=== PATIENT | male | born 1995 | race Two or more races ===

== ENCOUNTER 2024-03-18 06:44 | Inpatient (IN) | payer BC, OTHER ==
[~2024-03-18] VITALS: Ht 185.4 cm; Wt 72.6 kg
--- NOTE | 2024-03-18 06:56 | ED.PDOC ---
GI ASSESSMENT HPI Comments a 28 YEAR OLD MALE PRESENTS TO THE ED WITH CHIEF COMPLAINT OF ABDOMINAL PAIN. PATIENT REPORTS THAT HE HAS BEEN EXPERIENCING RLQ ABDOMINAL PAIN THAT RADIATES TO HIS RIGHT FLANK SINCE 3 DAYS AGO WITH ASSOCIATED NAUSEA, VOMITING, AND DYSURIA SINCE EARLIER THIS MORNING. PATIENT RELAYS THAT HE HAS NOT TAKEN ANY PAIN MEDICATION AT THIS TIME. WALKING AND MOVEMENT INCREASES RIGHT LOWER ABD PAIN. PATIENT DENIES ANY DIARRHEA, FEVER, CHILLS, HEMATURIA, OR HEMATEMESIS. Time Seen by MD: 06:52 Reviewed Notes: Nurses Notes, Medications, Allergies Allergies: Coded Allergies: NO KNOWN ALLERGIES (Unverified , 03/18/24) Information Source: Patient Mode of Arrival: Ambulatory Timing: Hours Duration: Since onset Prehospital treatment: None Quality: Sharp Vomitus: Watery Stool: Normal Severity: Moderate Recent: None Recent Hx of: None Pain Location: RLQ Modifying Factors: Nothing Associated sign and symptoms: Nausea, Vomiting, Abdominal Pain Past Medical History PAST MEDICAL HISTORY: Denies Surgical History: Denies all surgeries Family History Family History: Reviewed,noncontributory to illness Social History Smoker: Non-Smoker Alcohol: Denies ETOH Use Drugs: Denies Drug Use Lives In: Home Constitutional: denies: chills, diaphoresis, fatigue, fever, malaise, sweats, weakness, others EENTM: denies: blurred vision, double vision, ear bleeding, ear discharge, ear drainage, ear pain, ear ringing, eye pain, eye redness, hearing loss, mouth pain, mouth swelling, nasal discharge, nose bleeding, nose congestion, nose pain, photophobia, tearing, throat pain, throat swelling, voice changes, others Respiratory: denies: cough, hemoptysis, orthopnea, SOB at rest, shortness of breath, SOB with excertion, stridor, wheezing, others Cardiovascular: denies: chest pain, dizzy spells, diaphoresis, Dyspnea on exertion, edema, irregular heart beat, left arm pain, lightheadedness, palpitations, PND, syncope, others Gastrointestinal: reports: abdominal pain, nausea, vomiting; denies: abdomen distended, blood streaked bowels, constipated, diarrhea, dysphagia, difficulty swallowing, hematemesis, melena, poor appetite, poor fluid intake, rectal bleeding, rectal pain, others Genitourinary: reports: dysuria; denies: burning, flank pain, frequency, hematuria, incontinence, penile discharge, penile sore, pain, testicle pain, testicle swelling, urgency, others Neurological: denies: dizziness, fainting, headache, left sided numbness, left sided weakness, numbness, paresthesia, pre-existing deficit, right sided numbness, right sided weakness, seizure, speech problems, tingling, tremors, weakness, others Musculoskeletal: denies: back pain, gout, joint pain, joint swelling, muscle pain, muscle stiffness, neck pain, others Integumetry: denies: bruises, change in color, change in hair/nails, dryness, laceration, lesions, lumps, rash, wounds, others Allergic/Immunocompromised: denies: Difficulty Healing, Frequent Infections, Hives, Itching, others Hematologic/Lymphatic: denies: anemia, blood clots, easy bleeding, easy bruising, swollen glands, others Endocrine: denies: excessive hunger, excessive sweating, excessive thirst, excessive urination, flushing, intolerance to cold, intolerance to heat, unexplained weight gain, unexplained weight loss, others Psychiatric: denies: anxiety, bipolar disorder, depression, hopeless, panic disorder, schizophrenia, sleepless, suicidal, others All Other Systems: Reviewed and Negative Physical Exam General Appearance: Mild Distress, Normal HEENT: Normal ENT Inspection, PERRL/EOMI Neck: Full Range of Motion, Non-Tender, Normal, Normal Inspection Respiratory: Chest Non-Tender, Lungs Clear, No Accessory Muscle Use, No Respiratory Distress, Normal Breath Sounds Cardiovascular: No Edema, No JVD, No Murmur, No Gallop, Normal Peripheral Pulses, Regular Rate/Rhythm Breast Exam: Deferred Gastrointestinal: Guarding, No Organomegaly, No Pulsatile Mass, Normal Bowel Sounds, Soft, Tenderness (WITH GUARDING AND REBOUND TENDERNESS ON RIGHT LOWER ABD, APPENTITIS. ) Genitalia: Deferred Pelvic: Deferred Rectal: Deferred Extremities: No calf tenderness, Normal capillary refill, Normal inspection, Normal range of motion, Non-tender, No pedal edema Musculoskeletal : Apperance: Normal Neurologic: Alert, site reliability engineer II-XII nml as Tested, No Motor Deficits, Normal Affect, Normal Mood, No Sensory Deficits Cerebellar Function: Normal Reflexes: Normal Skin: Dry, Normal Color, Warm Peripheral Pulses: 2+ carotid (R), 2+ carotid (L) Lymphatic: No Adenopathy Was a procedure done? Was a procedure done?: No GI differential Dx Differential Diagnosis: Appendicitis, Gastritis/PUD, Gastroenteritis, UTI, Urolithiasis X-Ray, Labs, Meds, VS Vital Signs Date Time Temp Pulse Resp B/P (MAP) Pulse Ox O2 Delivery O2 Flow Rate FiO2 03/18/24 10:05 54 18 127/73 03/18/24 09:15 60 16 132/89 (103) 99 03/18/24 09:14 60 16 132/89 03/18/24 08:14 76 20 145/73 03/18/24 08:13 76 20 145/73 (97) 98 03/18/24 07:10 100 20 Room Air* 0 21 03/18/24 07:10 98.9 100 20 142/89 (106) 100 98.9 03/18/24 06:45 98.2 84 20 140/98 (112) 99 Lab Test 03/18/24 07:45 03/18/24 07:40 Range/Units Urine Color Light-yellow Yellow Urine Clarity Clear Clear Urine pH 8.0 5.0-9.0 Urine Specific [place] 1.015 1.001-1.035 Urine Protein Negative Negative Urine Ketones Negative Negative Urine Blood Negative Negative /uL Urine Nitrite Negative Negative Urine Bilirubin Negative Negative Urine Urobilinogen Normal Negative mg/dL Urine Leukocyte Esterase Negative Negative /uL Urine RBC 1 0 - 3 /hpf Urine WBC <1 0 - 3 /hpf Urine Squamous Epithelial Cells None seen <5 /hpf Urine Bacteria None seen None Seen /hpf Urine Glucose Normal Normal mg/dL White Blood Count 8.2 4.4-10.8 10^3/uL Red Blood Count 5.05 4.5-5.90 10^6/uL Hemoglobin 16.9 13.5-17.5 g/dL Hematocrit 46.9 41.0-53.0 % Mean Corpuscular Volume 93.0 80.0-100.0 fL Mean Corpuscular Hemoglobin 33.6 H 28.0-32.0 pg Mean Corpuscular Hemoglobin Concent 36.1 H 32.0-36.0 g/dL Red Cell Distribution Width 12.4 11.8-14.3 % Platelet Count 256 140-450 10^3/uL Mean Platelet Volume 8.0 6.9-10.8 fL Neutrophils (%) (Auto) 81.3 H 37.0-80.0 % Lymphocytes (%) (Auto) 13.7 10.0-50.0 % Monocytes (%) (Auto) 3.1 0.0-12.0 % Eosinophils (%) (Auto) 1.5 0.0-7.0 % Basophils (%) (Auto) 0.4 0.0-2.0 % Neutrophils # (Auto) 6.7 1.6-8.6 10 ^3/uL Lymphocytes # (Auto) 1.1 0.4-5.4 10 ^3/uL Monocytes # (Auto) 0.3 0-1.3 10 ^3/uL Eosinophils # (Auto) 0.1 0-0.8 10 ^3/uL Basophils # (Auto) 0 0-0.2 10 ^3/uL Nucleated Red Blood Cells 0.1 % Sodium Level 141 136-145 mmol/L Potassium Level 3.8 3.5-5.1 mmol/L Chloride Level 104 98-107 mmol/L Carbon Dioxide Level 28 20-31 mmol/L Anion Gap 9 5-15 Blood Urea Nitrogen 12 9-23 mg/dL Creatinine 0.99 0.700-1.30 mg/dL Glomerular Filtration Rate Calc 105 >90 mL/min BUN/Creatinine Ratio 12.1 10.0-20.0 Serum Glucose 117 H 74-106 mg/dL Calcium Level 10.2 8.7-10.4 mg/dL C-Reactive Protein High Sensitivity 0.18 <1.0 mg/dL Current Medications Medications (Trade) Dose Ordered Sig/Sveta Route Start Time Stop Time Status Last Admin Sodium Chloride 1,000 ml @ 1,000 mls/hr Q1H ONCE IV 03/18/24 07:00 03/18/24 07:59 DC 03/18/24 07:12 Ondansetron HCl (Zofran) 4 mg ONCE ONCE IV 03/18/24 07:00 03/18/24 07:01 DC 03/18/24 07:12 Ketorolac Tromethamine (Toradol Injection) 30 mg ONCE ONCE IV 03/18/24 07:00 03/18/24 07:01 DC 03/18/24 07:11 Piperacillin Sod/ Tazobactam Sod 100 ml @ 100 mls/hr ONCE ONCE IV 03/18/24 08:00 03/18/24 08:59 DC 03/18/24 08:08 Meperidine HCl (Demerol Injection) 25 mg ONCE ONCE IV 03/18/24 08:15 03/18/24 08:16 DC 03/18/24 08:14 Sodium Chloride 1,000 ml @ 125 mls/hr Q8H ONCE IV 03/18/24 10:00 03/18/24 11:35 DC 03/18/24 09:55 Hydromorphone HCl (Dilaudid Injection) 0.5 mg ONCE ONCE IV 03/18/24 10:00 03/18/24 10:01 DC 03/18/24 10:05 CT ABD/PEL: FINDINGS: Lung bases: Lung bases are clear. Liver: Grossly unremarkable in its noncontrast enhanced appearance. No abnormal density or focal lesion identified. Biliary: No calcified gallstones or biliary ductal dilatation. Spleen: Unremarkable. Pancreas: Grossly unremarkable in its noncontrast enhanced appearance. Adrenal glands: Unremarkable. No mass. Kidneys: No hydronephrosis. No renal or ureteral calculi. Aorta/Vascular: No aneurysm or significant calcification. Retroperitoneum: No mass or lymphadenopathy. Bowel/mesentery: No small bowel obstruction. No free air or free fluid. Appendix is visualized and in diameter, at the upper limits of normal. No periappendiceal stranding or free fluid visualized. Moderate stool in the colon. Scattered colonic diverticula without adjacent inflammatory changes to suggest diverticulitis. Pelvic organs: Grossly unremarkable. Bladder: Unremarkable. No mass. Abdominal wall: No mass or hernia. Bones: No acute fracture or suspicious intraosseous lesion. IMPRESSION: 1. Appendix measures at the upper limits of normal in thickness with no periappendiceal stranding or free fluid identified. Early acute appendicitis can not be excluded in the appropriate clinical setting. Correlation with clinical findings is needed. 2. Moderate stool in the colon. 3. No hydronephrosis and no renal or ureteral calculi. X-Ray, Labs, Meds, VS Comment - The following tests were ordered, and results were reviewed by me: CT ABD/PEL, UA, CBC, BMP - Additional information was gathered from interviewing the following independent Historian: - I reviewed and agreed with the following test results read by other provider: CT ABD/PEL - I discussed treatments and results with medical personnel and . TREATMENT: TORADOL 30MG IV, ZOFRAN 4MG IV, MEPERIDINE 25MG IV, ZOSYN 3.375G IV, AND NORMAL SALINE IV. 0900: SPOKE WITH DR. JOLLEY REGARDING THE PATIENT CASE AND HE HAD ADVISED THE P ATIENT TO BE ADMITTED TO THE HOSPITAL AND HE WILL EVALUATE THE PATIENT LATER TODAY. DR JOLLEY ADVISED PATIENT TO HAVE A REPEAT CT ABD/PEL W/ IV CONTRAST TOMORROW MORNING. 1410: DR. JOLLEY EVALUATED THE PATIENT BEDSIDE AND ADVISED TO HAVE THE PATIENT ADMITTED TO THE HOSPITAL FOR OBSERVATION AND HAVE A REPEAT CT ABD/PEL PERFORMED WITH PO CONTRAST TOMORROW. Time of 1ST Reevaluation: 10:00 Reevaluation 1ST: Unchanged Time of 2ND Reevaluation: 11:00 Patient Education/Counseling: Diagnosis, Treatment Family Education/Counseling: Diagnosis, Treatment Departure 1 Departure Time of Disposition: 11:00 Impression: Primary Impression: Intractable abdominal pain Additional Impression: Acute appendicitis Qualified Codes: K35.80 - Unspecified acute appendicitis Disposition: ADMITTED INPATIENT Condition: Serious Critical Care Note Critical Care Time?: No Stability Stability form required: No Unstable for transfer: Requires medication, ED Physician Assesment, Possible rapid decline Heart Score Heart Score: Heart Score Response (Comments) Value History N/A 0 EKG N/A 0 Age N/A 0 Risk Factors N/A 0 Troponin N/A 0 Total 0 I personally scribed for BRIAN VILLARREAL ([email or web address]) on 03/18/24 at 06:56. Elect ronically submitted by Rafiq Stanley ([email or web address]). I personally scribed for BRIAN VILLARREAL ([email or web address]) on 03/18/24 at 07:12. Electron ically submitted by Rafiq Stanley ([email or web address]). I personally scribed for BRIAN VILLARREAL PA ([email or web address]) on 03/18/24 at 07:57. Electronically submitted by Rafiq Stanley ([email or web address]). I personally scribed for BRIAN VILLARREAL PA ([email or web address]) on 03/18/24 at 08:59. Electronically submitted by Rafiq Stanley ([email or web address]). I personally scribed for BRIAN VILLARREAL ([email or web address]) on 03/18/24 at 09:08. Electronically submitted by Rafiq Stanley ([email or web address]). I personally scribed for BRIAN VILLARREAL ([email or web address]) on 03/18/24 at 11:12. Electronically submitted by Rafiq Stanley ([email or web address]). I personally scribed for STEPHANIE BAIRD MD ([email or web address]) on 03/18/24 at 14:12. Electronically submitted by Rafiq Stanley ([email or web address]). BRIAN VILLARREAL Mar 18, 2024 06:56 STEPHANIE BAIRD MD Mar 18, 2024 14:12
[2024-03-18 07:10] VITALS: PULSE 100; RESP 20
[2024-03-18] MEDS: KETOROLAC TROMETH 30 MG/ML 1ML VIAL IV ONE (07:11)
[2024-03-18] MEDS: SODIUM CHLORIDE 0.9% 1,000 ML IV ONE ×2 (07:12→09:55)
[2024-03-18] MEDS: ONDANSETRON HCL 4 MG/2 ML VIAL IV ONE (07:12)
--- NOTE | 2024-03-18 07:51 | DVH ---
CLINICAL INFORMATION: 28 years old, Male; RIGHT LOWER ABD PAIN TO RIGHT LOWER BACK. TECHNIQUE: Axial CT images of the abdomen and pelvis were obtained without IV contrast. Coronal and sagittal reformatted images were obtained, reviewed, and stored. Evaluation of the parenchymal organs is limited without IV contrast. Evaluation of the bowel and mesentery is limited without oral contra st. All CT scans at this medical facility are performed using dose modulation techniques as appropria te to a performed exam including the following: Automated exposure control was utilized; adjustment o f the MA and/or KV according to patient size; and use of iterative reconstruction technique. CTDIvol = 6.71, 0.07, 0.07 mGy DLP = 317.16 mGy-cm COMPARISON: None FINDINGS: Lung bases: Lung bases are clear. Liver: Grossly unremarkable in its noncontrast enhanced appearance. No abnormal density or focal les ion identified. Biliary: No calcified gallstones or biliary ductal dilatation. Spleen: Unremarkable. Pancreas: Grossly unremarkable in its noncontrast enhanced appearance. Adrenal glands: Unremarkable. No mass. Kidneys: No hydronephrosis. No renal or ureteral calculi. Aorta/Vascular: No aneurysm or significant calcification. Retroperitoneum: No mass or lymphadenopathy. Bowel/mesentery: No small bowel obstruction. No free air or free fluid. Appendix is visualized and in diameter, at the upper limits of normal. No periappendiceal stranding or free fluid visualized. Mode rate stool in the colon. Scattered colonic diverticula without adjacent inflammatory changes to sugge st diverticulitis. Pelvic organs: Grossly unremarkable. Bladder: Unremarkable. No mass. Abdominal wall: No mass or hernia. Bones: No acute fracture or suspicious intraosseous lesion. IMPRESSION: 1. Appendix measures at the upper limits of normal in thickness with no periappendiceal stranding or free fluid identified. Early acute appendicitis can not be excluded in the appropriate clinical setti ng. Correlation with clinical findings is needed. 2. Moderate stool in the colon. 3. No hydronephrosis and no renal or ureteral calculi.
[2024-03-18 07:58] LABS: Urine Bacteria None Seen /hpf (None Seen)
[2024-03-18] MEDS ORDERED: MORPHINE SULFATE 4 MG/ML SYR/VIAL IV ONE (08:00)
[2024-03-18] MEDS: PIPERACILLIN-TAZOB 3.375GM 100 ML IV ONE (08:08)
[2024-03-18] MEDS: MEPERIDINE HCL (25 MG/ML) 1ML VIAL IV ONE (08:14)
[2024-03-18 08:34] LABS: Chloride 104 mmol/L (98-107); Potassium 3.8 mmol/L (3.5-5.1); Sodium 141 mmol/L (136-145)
[2024-03-18 08:35] LABS: Anion Gap 9 (5-15); Calcium 10.2 mg/dL (8.7-10.4); Carbon Dioxide 28 mmol/L (20-31)
[2024-03-18 08:35] LABS: Urine Blood Negative /uL (Negative); Urine Clarity Clear (Clear); Urine Color Light-Yellow (Yellow); Urine Protein, UAD Negative (Negative); Urine Specific Gravity 1.015 (1.001-1.035); Urine Squamous Epithelial Cell None Seen /hpf (<5); Urine Urobilinogen Normal (Negative); Urine WBC <1 /hpf (0 - 3)
[2024-03-18 08:39] LABS: Basophils # (auto) 0 10 ^3/uL (0-0.2); Basophils % (auto) 0.4 % (0.0-2.0); Eosinophils # (auto) 0.1 10 ^3/uL (0-0.8); Eosinophils % (auto) 1.5 % (0.0-7.0); Hematocrit 46.9 % (41.0-53.0); Hemoglobin 16.9 g/dL (13.5-17.5); Lymphocytes # (auto) 1.1 10 ^3/uL (0.4-5.4); Lymphocytes % (auto) 13.7 % (10.0-50.0); Mean Corpuscular Hemoglobin 33.6 pg (28.0-32.0); Mean Corpuscular Hgb Conc. 36.1 g/dL (32.0-36.0); Monocytes # (auto) 0.3 10 ^3/uL (0-1.3); Monocytes % (auto) 3.1 % (0.0-12.0); Neutrophils # (auto) 6.7 10 ^3/uL (1.6-8.6); Neutrophils % (auto) 81.3 % (37.0-80.0); Nucleated Red Blood Cells % 0.1 %; Platelet Count (auto) 256 10^3/uL (140-450); Red Blood Cells 5.05 10^6/uL (4.5-5.90); Red Cell Distribution Width 12.4 % (11.8-14.3); White Blood Cell 8.2 10^3/uL (4.4-10.8)
[2024-03-18 08:40] LABS: BUN/Creatinine Ratio 12.1 (10.0-20.0); Blood Urea Nitrogen 12 mg/dL (9-23)
[2024-03-18 08:41] LABS: Glucose 117 mg/dL (74-106)
[2024-03-18 09:02] VITALS: BP 122/71; PULSE 50; RESP 16; TEMP 97.5; O2SAT 99
[2024-03-18] MEDS: HYDROmorphone HCL 2 MG/ML VL/or syr IV ONE ×2 (10:05→14:23)
[2024-03-18] MEDS ORDERED: VANCOMYCIN PER PHARMACY 0 MG IV SCH (11:30)
[2024-03-18] MEDS ORDERED: MORPHINE SULFATE INJ 2 MG/ml SYRG IV PRN (11:30)
--- NOTE | 2024-03-18 11:35 | DVHHP2 ---
History of Present Illness Reason for Visit: Nausea, vomiting, diarrhea, dysuria, and abdominal pain History of Present Illness Rene Huntley is a 28Y M with no past medical history who reports to the ED today for nausea, vomiting, diarrhea, dysuria, and abdominal pain x3 days. Patient reports that it started during the new year's and he has been vomiting clear and food contents. Patient reports that he does not drink or smoke cigarettes but he does use marijuana occasionally. Patient also states that he does not use any medications. Patient denies fevers, chills, chest pain, shortness of breath, lightheadedness, and dizziness. Past Surgical History: None Family History: Other (Dad - diverticulosis) Smoke: No ALCOHOL: none Drugs: Marijuana Lives: with Family Domestic Violence: Neg Review of Systems Constitutional: No: Fever, Chills, Sweats, Weakness, Malaise, Other Eyes: No: Pain, Vision change, Conjunctivae inflammation, Eyelid inflammation, Other, Redness ENT: No: Ear pain, Ear discharge, Nose pain, Nose discharge, Nose congestion, Mouth pain, Mouth swelling, Throat pain, Throat swelling, Other Respiratory: No: Cough, Dry, Shortness of breath, SOB with excertion, Wheezing, Hemoptysis, Pleuritic Pain, Sputum, Wheezing, Other Cardiovascular: No: Chest Pain, Palpitations, Orthopnea, Paroxysmal Noc. Dysp ten, Edema, Lt Headedness, Other Gastrointestinal: Nausea, Vomiting, Abdominal Pain, Diarrhea; No: Constipation, Melena, Hematochezia, Other Genitourinary: Dysuria; No Frequency, No Incontinence, No Hematuria, No Retention, No Other Musculoskeletal: No: other, neck pain, shoulder pain, arm pain, back pain, hand pain, leg pain, foot pain Skin: No: Rash, Lesions, Jaundice, Bruising, Other Neurological: No: Weakness, Numbness, Incoordination, Change in speech, Confu randy, Seizures, Other Allergies: Coded Allergies: NO KNOWN ALLERGIES (Unverified , 03/18/24) Exam Vital Signs Vital Signs Date Time Temp Pulse Resp B/P (MAP) Pulse Ox O2 Delivery O2 Flow Rate FiO2 03/18/24 10:05 54 18 127/73 03/18/24 09:15 99 03/18/24 07:10 Room Air* 0 21 03/18/24 07:10 98.9 98.9 General Appearance: Alert, Oriented X3, Cooperative, moderate distress HEENT: Atraumatic, PERRLA, EOMI, Mucous membr. moist/pink Respiratory: Clear to auscultation, Normal air movement Cardiovascular: Regular rate, Normal S1, Normal S2, No murmurs Abdominal: No hepatospenomegaly, No masses, Other (positive obturator sign) Extremities: No clubbing, No cyanosis, No edema, Normal pulses, No tenderness/swelling Skin: No rashes, No breakdown, No significant lesion Neuro: Normal gait, Normal speech, Strength at 5/5 X4 ext, Normal tone, Sensation intact Psych/Mental Status: Mental status NL, Mood NL Labs/Xrays Labs Test 03/18/24 07:45 03/18/24 07:40 Range/Units Urine Color Light-yellow Yellow Urine Clarity Clear Clear Urine pH 8.0 5.0-9.0 Urine Specific [place] 1.015 1.001-1.035 Urine Protein Negative Negative Urine Ketones Negative Negative Urine Blood Negative Negative /uL Urine Nitrite Negative Negative Urine Bilirubin Negative Negative Urine Urobilinogen Normal Negative mg/dL Urine Leukocyte Esterase Negative Negative /uL Urine RBC 1 0 - 3 /hpf Urine WBC <1 0 - 3 /hpf Urine Squamous Epithelial Cells None seen <5 /hpf Urine Bacteria None seen None Seen /hpf Urine Glucose Normal Normal mg/dL White Blood Count 8.2 4.4-10.8 10^3/uL Red Blood Count 5.05 4.5-5.90 10^6/uL Hemoglobin 16.9 13.5-17.5 g/dL Hematocrit 46.9 41.0-53.0 % Mean Corpuscular Volume 93.0 80.0-100.0 fL Mean Corpuscular Hemoglobin 33.6 H 28.0-32.0 pg Mean Corpuscular Hemoglobin Concent 36.1 H 32.0-36.0 g/dL Red Cell Distribution Width 12.4 11.8-14.3 % Platelet Count 256 140-450 10^3/uL Mean Platelet Volume 8.0 6.9-10.8 fL Neutrophils (%) (Auto) 81.3 H 37.0-80.0 % Lymphocytes (%) (Auto) 13.7 10.0-50.0 % Monocytes (%) (Auto) 3.1 0.0-12.0 % Eosinophils (%) (Auto) 1.5 0.0-7.0 % Basophils (%) (Auto) 0.4 0.0-2.0 % Neutrophils # (Auto) 6.7 1.6-8.6 10 ^3/uL Lymphocytes # (Auto) 1.1 0.4-5.4 10 ^3/uL Monocytes # (Auto) 0.3 0-1.3 10 ^3/uL Eosinophils # (Auto) 0.1 0-0.8 10 ^3/uL Basophils # (Auto) 0 0-0.2 10 ^3/uL Nucleated Red Blood Cells 0.1 % Sodium Level 141 136-145 mmol/L Potassium Level 3.8 3.5-5.1 mmol/L Chloride Level 104 98-107 mmol/L Carbon Dioxide Level 28 20-31 mmol/L Anion Gap 9 5-15 Blood Urea Nitrogen 12 9-23 mg/dL Creatinine 0.99 0.700-1.30 mg/dL Glomerular Filtration Rate Calc 105 >90 mL/min BUN/Creatinine Ratio 12.1 10.0-20.0 Serum Glucose 117 H 74-106 mg/dL Calcium Level 10.2 8.7-10.4 mg/dL CLINICAL INFORMATION: 28 years old, Male; RIGHT LOWER ABD PAIN TO RIGHT LOWER BACK. COMPARISON: None FINDINGS: Lung bases: Lung bases are clear. Liver: Grossly unremarkable in its noncontrast enhanced appearance. No abnormal density or focal lesion identified. Biliary: No calcified gallstones or biliary ductal dilatation. Spleen: Unremarkable. Pancreas: Grossly unremarkable in its noncontrast enhanced appearance. Adrenal glands: Unremarkable. No mass. Kidneys: No hydronephrosis. No renal or ureteral calculi. Aorta/Vascular: No aneurysm or significant calcification. Retroperitoneum: No mass or lymphadenopathy. Bowel/mesentery: No small bowel obstruction. No free air or free fluid. Appendix is visualized and in diameter, at the upper limits of normal. No periappendiceal stranding or free fluid visualized. Moderate stool in the colon. Scattered colonic diverticula without adjacent inflammatory changes to suggest diverticulitis. Pelvic organs: Grossly unremarkable. Bladder: Unremarkable. No mass. Abdominal wall: No mass or hernia. Bones: No acute fracture or suspicious intraosseous lesion. IMPRESSION: 1. Appendix measures at the upper limits of normal in thickness with no periappendiceal stranding or free fluid identified. Early acute appendicitis can not be excluded in the appropriate clinical setting. Correlation with clinical findings is needed. 2. Moderate stool in the colon. 3. No hydronephrosis and no renal or ureteral calculi. Assessment/Plan Assessment/Plan Assessment/Plan: Intractable abdominal pain possibly acute appendicitis ct a/p noted labs pain management antiemetics ua negative am labs IV antibiotics Ultrasound right lower quadrant General surgery consulted FEN/PPX IV fluids NPO DVT prophylaxis not indicated patient ambulating PUD prophylaxis not indicated no history of GERD or GI bleed Admit to med surg Patient states he doesn't take any home medications Discussed plan of care with patient and nurse Plan discussed with: Patient My Orders Orders - SARAHY BECKER Procedure Category Date Status Time C-Reactive Protein LAB 03/18/24 In Process 10:44 Right Lower Quad US 03/18/24 Logged 11:15 * Surgical Consult CONS 03/18/24 Transmitted Admit ADMIT 03/18/24 Transmitted 11:19 Allergies MAKI 03/18/24 In Process 11:19 Code Status CODE 03/18/24 Transmitted 11:19 0.9% Ns 1000 Ml PHA 03/18/24 Transmitted 11:30 Hydrocodone-Acet PHA 03/18/24 Transmitted 5/325mg Tab ([place] 11:30 Ondansetron Hcl PHA 03/18/24 Transmitted (Zofran) 11:30 Complete Blood Count LAB 03/19/24 Verified 04:00 Comprehensive LAB 03/19/24 Verified Metabolic Panel 04:00 Npo (Nothing By DIET 03/18/24 Transmitted Mouth) Diet Lunch Acetaminophen Tablet PHA 03/18/24 Transmitted (Tylenol Tablet) 11:30 Morphine Sulfate PHA 03/18/24 Transmitted Injection 11:30 Date of Service: Mar 18, 2024 Billing Provider: SARAHY BECKER Common Visit Codes: [id number] INP/OBS CARE (HIGH) SRAAHY BECKER Mar 18, 2024 11:35
--- NOTE | 2024-03-18 11:59 | DVH ---
INDICATION: r/o appendicitis Comparison: Same day CT abdomen pelvis TECHNIQUE: Graded compression technique along with Multiple real-time sonographic images were obtain ed for evaluation of the right lower quadrant. FINDINGS: The appendix was not visualized. No free fluid or lymph nodes are seen on this exam. IMPRESSION: 1.Nonvisualization of the appendix, thus cannot exclude appendicitis. HS:Y
[2024-03-18] MEDS: SODIUM CHLORIDE 0.9% 1,000 ML IV SCH (12:44)
[2024-03-18] MEDS: PIPERACILLIN-TAZOB 3.375GM 100 ML IV SCH (13:18)
--- NOTE | 2024-03-18 14:31 | DVHINCON2 ---
Date of service: Mar 18, 2024 Allergies: Coded Allergies: NO KNOWN ALLERGIES (Unverified , 03/18/24) Current Medications Current Medications Medications (Trade) Dose Ordered Sig/Sveta Route PRN Reason Start Time Stop Time Status Last Admin Sodium Chloride 1,000 ml @ 100 mls/hr Q10H IV 03/18/24 11:30 03/18/24 12:44 Acetaminophen/ Hydrocodone Bitart ([place] 5/325MG Tab) 1 tab Q4HP PRN PO MODERATE PAIN (4-6 PAIN SCALE) 03/18/24 11:30 Ondansetron HCl (Zofran) 4 mg Q4HP PRN IV NAUSEA / VOMITING 03/18/24 11:30 Acetaminophen (Tylenol Tablet) 650 mg Q6HP PRN PO PAIN SCALE 1-3 OR TEMP>100.4 03/18/24 11:30 Morphine Sulfate 2 mg Q4HPRN PRN IV SEVERE PAIN (7-10 PAIN SCALE) 03/18/24 11:30 03/18/24 12:52 DC Piperacillin Sod/ Tazobactam Sod 100 ml @ 25 mls/hr Q6HR IV 03/18/24 12:00 03/18/24 13:18 Vancomycin HCl 0 ml @ 0 mls/hr UD IV 03/18/24 11:30 03/18/24 11:52 DC Hydromorphone HCl (Dilaudid Injection) 0.5 mg QIDPRN PRN IV SEVERE PAIN (7-10 PAIN SCALE) 03/18/24 14:30 UNV Vital Signs Vital Signs Date Time Temp Pulse Resp B/P (MAP) Pulse Ox O2 Delivery O2 Flow Rate FiO2 03/18/24 12:57 97.8 58 18 136/79 (98) 99 97.8 03/18/24 12:55 Room Air 03/18/24 07:10 0 21 Labs/Diagnostic Data Labs Test 03/18/24 07:45 03/18/24 07:40 Range/Units Urine Color Light-yellow Yellow Urine Clarity Clear Clear Urine pH 8.0 5.0-9.0 Urine Specific [place] 1.015 1.001-1.035 Urine Protein Negative Negative Urine Ketones Negative Negative Urine Blood Negative Negative /uL Urine Nitrite Negative Negative Urine Bilirubin Negative Negative Urine Urobilinogen Normal Negative mg/dL Urine Leukocyte Esterase Negative Negative /uL Urine RBC 1 0 - 3 /hpf Urine WBC <1 0 - 3 /hpf Urine Squamous Epithelial Cells None seen <5 /hpf Urine Bacteria None seen None Seen /hpf Urine Glucose Normal Normal mg/dL White Blood Count 8.2 4.4-10.8 10^3/uL Red Blood Count 5.05 4.5-5.90 10^6/uL Hemoglobin 16.9 13.5-17.5 g/dL Hematocrit 46.9 41.0-53.0 % Mean Corpuscular Volume 93.0 80.0-100.0 fL Mean Corpuscular Hemoglobin 33.6 H 28.0-32.0 pg Mean Corpuscular Hemoglobin Concent 36.1 H 32.0-36.0 g/dL Red Cell Distribution Width 12.4 11.8-14.3 % Platelet Count 256 140-450 10^3/uL Mean Platelet Volume 8.0 6.9-10.8 fL Neutrophils (%) (Auto) 81.3 H 37.0-80.0 % Lymphocytes (%) (Auto) 13.7 10.0-50.0 % Monocytes (%) (Auto) 3.1 0.0-12.0 % Eosinophils (%) (Auto) 1.5 0.0-7.0 % Basophils (%) (Auto) 0.4 0.0-2.0 % Neutrophils # (Auto) 6.7 1.6-8.6 10 ^3/uL Lymphocytes # (Auto) 1.1 0.4-5.4 10 ^3/uL Monocytes # (Auto) 0.3 0-1.3 10 ^3/uL Eosinophils # (Auto) 0.1 0-0.8 10 ^3/uL Basophils # (Auto) 0 0-0.2 10 ^3/uL Nucleated Red Blood Cells 0.1 % Sodium Level 141 136-145 mmol/L Potassium Level 3.8 3.5-5.1 mmol/L Chloride Level 104 98-107 mmol/L Carbon Dioxide Level 28 20-31 mmol/L Anion Gap 9 5-15 Blood Urea Nitrogen 12 9-23 mg/dL Creatinine 0.99 0.700-1.30 mg/dL Glomerular Filtration Rate Calc 105 >90 mL/min BUN/Creatinine Ratio 12.1 10.0-20.0 Serum Glucose 117 H 74-106 mg/dL Calcium Level 10.2 8.7-10.4 mg/dL C-Reactive Protein High Sensitivity 0.18 <1.0 mg/dL Assessment 553603 R/O AC APPENDICITIS CLINICALLY TENDER RLQ CT SCAN NOT CONFIRMING CLOSE OBSERVATION CONSIDER EMERGENT SURGERY BASED ON ONGOING EVAL REPEAT CT ABD PELVIS WITH PO CONTRAST AM TO DETERMINE THE NEED FOR SURGERY Plan discussed with: Patient WILBERT JOLLEY MD Mar 18, 2024 14:31
[2024-03-18] MEDS: HYDROmorphone HCL 2 MG/ML VL/or syr IV PRN (14:42)
[2024-03-18 17:18] VITALS: BP 128/82; PULSE 54; RESP 17; TEMP 97.7; O2SAT 100
[2024-03-18] MEDS ORDERED: HYDROmorphone HCL 2 MG/ML VL/or syr IV ONE (18:00)
--- NOTE | 2024-03-18 18:04 | DVHINCON2 ---
DATE OF CONSULTATION: 03/18/2024 HISTORY OF PRESENT ILLNESS: This patient is 28 years old, coming in with right lower quadrant pain, started two or three days ago, got worse. He had nausea and vomiting as well and diarrhea. Did not have any restaurant food outside. No hematemesis, melena. No bleeding per rectum. PAST MEDICAL HISTORY: No diabetes, hypertension. PAST SURGICAL HISTORY: No significant surgical history. PHYSICAL EXAMINATION: VITAL SIGNS: Afebrile, stable signs. HEENT: With no evidence of pallor, cyanosis, or jaundice. NECK: Supple, nontender with no thyromegaly, lymphadenopathy. CHEST AND LUNGS: Clear. HEART: Within normal limits. ABDOMEN: Soft. He is minimally tender in the right lower abdomen with no significant rebound. EXTREMITIES: Unremarkable. NEUROLOGIC: Intact. CLINICAL IMPRESSION: Clinically, he does not appear to have acute appendicitis, but he does have significant right and left lower abdominal pain. CT scan is also not conclusive for appendicitis. PLAN: Will be to keep him under close observation, keep him n.p.o. and then determine the need for surgery based upon ongoing evaluation and possible repeat CT scan with p.o. contrast. MD PIERCE Walker/DOLLY TID: [id number] RECEIPT: [id number] cc: Ravi Lopes
[2024-03-18 18:59] VITALS: BP 122/81; PULSE 50; PULSE 63; RESP 16; RESP 18; TEMP 97.5; O2SAT 100; O2SAT 99
[2024-03-18 20:00] VITALS: PULSE 63; RESP 19; O2SAT 100
[2024-03-18 21:00] VITALS: BP 122/81; PULSE 53; RESP 19; TEMP 97.5; O2SAT 100
[2024-03-18] MEDS: ONDANSETRON HCL 4 MG/2 ML VIAL IV PRN (21:12)
[2024-03-19 01:00] VITALS: BP 105/63; PULSE 50; RESP 18; TEMP 97.4; O2SAT 100
[2024-03-19 05:00] VITALS: BP 102/42; PULSE 50; RESP 18; TEMP 97.7; O2SAT 100
[2024-03-19] MEDS: HYDROcodone-ACET 5/325MG TAB PO PRN (05:50)
[2024-03-19 07:02] LABS: Basophils # (auto) 0 10 ^3/uL (0-0.2); Basophils % (auto) 0.9 % (0.0-2.0); Eosinophils # (auto) 0.3 10 ^3/uL (0-0.8); Eosinophils % (auto) 5.6 % (0.0-7.0); Hematocrit 43.5 % (41.0-53.0); Hemoglobin 15.1 g/dL (13.5-17.5); Lymphocytes # (auto) 1.6 10 ^3/uL (0.4-5.4); Lymphocytes % (auto) 35.5 % (10.0-50.0); Mean Corpuscular Hemoglobin 32.2 pg (28.0-32.0); Mean Corpuscular Hgb Conc. 34.8 g/dL (32.0-36.0); Mean Corpuscular Volume 92.7 fL (80.0-100.0); Monocytes # (auto) 0.2 10 ^3/uL (0-1.3); Monocytes % (auto) 5.2 % (0.0-12.0); Neutrophils # (auto) 2.4 10 ^3/uL (1.6-8.6); Neutrophils % (auto) 52.8 % (37.0-80.0); Nucleated Red Blood Cells % 0.2 %; Platelet Count (auto) 223 10^3/uL (140-450); Red Cell Distribution Width 12.4 % (11.8-14.3); White Blood Cell 4.6 10^3/uL (4.4-10.8)
[2024-03-19 07:22] LABS: Alanine Aminotransferase 10 U/L (7-40); Alkaline Phosphatase 48 U/L (46-116); Anion Gap 7 (5-15); BUN/Creatinine Ratio 9.9 (10.0-20.0); Blood Urea Nitrogen 10 mg/dL (9-23); Calcium 9.8 mg/dL (8.7-10.4); Carbon Dioxide 29 mmol/L (20-31); Chloride 105 mmol/L (98-107); Glucose 101 mg/dL (74-106); Potassium 3.9 mmol/L (3.5-5.1); Sodium 141 mmol/L (136-145); Total Protein 6.2 g/dL (5.7-8.2)
[2024-03-19 07:54] LABS: Aspartate Aminotransferase 12 U/L (13-40); Bilirubin, Total 1.8 mg/dL (0.2-1.0)
[2024-03-19 08:30] VITALS: O2SAT 100
[2024-03-19] MEDS: ACETAMINOPHEN 325 MG TAB PO PRN (08:32)
[2024-03-19] MEDS ORDERED: GASTROGRAFIN 30 ML SOL ONE (08:45)
[2024-03-19 08:54] VITALS: BP 117/68; PULSE 53; RESP 18; TEMP 97.5; O2SAT 96
--- NOTE | 2024-03-19 11:24 | DVH ---
CT CT AB PEL WITH ORAL CON ONLY INDICATION: PER MD JOLLEY ORDERS EXAM DATE: 03/19/2024 10:33 AM COMPARISON: CT CT AB PEL WO CON-NO ORAL OR IV on DOS: 03/18/24 RADIATION DOSE: CTDIvol: 6.83 mGy, DLP: 322.13 mGy*cm PROCEDURE: Helical CT images were obtained of the abdomen and pelvis without IV contrast Sagittal an d coronal reconstructions are provided. ORAL CONTRAST: Yes ADDITIONAL IMAGES / REFORMATS: None All CT scans at this medical facility are performed using dose modulation techniques as appropriate t o a performed exam including the following: Automated exposure control was utilized; adjustment of th e MA and/or KV according to patient size; and use of iterative reconstruction technique. FINDINGS: LUNG BASE: Normal. LIVER: Normal. GALLBLADDER AND BILIARY TREE: No calcified gallstones. Normal caliber wall. No intra- or extrahepatic biliary ductal dilation. PANCREAS: Normal. SPLEEN: Normal. BOWEL: Normal. Normal appendix. ADRENALS: Normal. KIDNEYS AND URETER: Normal. BLADDER: Normal. REPRODUCTIVE ORGANS: Normal. LYMPH NODES:No lymphadenopathy. PERITONEUM: No ascites or free air. No other fluid collection. VESSELS: Normal. RETROPERITONEUM: Normal. ABDOMINAL WALL: Normal. BONES: Normal. IMPRESSION: No acute intraabdominal abnormality. Normal appendix.
[2024-03-19 12:59] VITALS: BP 117/63; PULSE 59; RESP 20; TEMP 97.5; O2SAT 100
--- NOTE | 2024-03-19 16:39 | DVHPN2 ---
Progress Note Date Seen: Mar 19, 2024 Medical Necessity Reason Pt with a Central, PICC or Fol: No Objective vital signs Vital Sign Date Time Temp Pulse Resp B/P (MAP) Pulse Ox O2 Delivery O2 Flow Rate FiO2 03/19/24 12:59 97.5 59 20 117/63 (81) 100 97.5 03/18/24 20:00 Room Air* 0 21 Total Intake and Output 03/18/24 03/18/24 03/19/24 14:59 22:59 06:59 Intake Total 1525 ml 100 ml Balance 1525 ml 100 ml medications Current Medications Medications Dose Ordered Sig/Sveta Route Start Time Stop Time Status Last Admin Dose Admin Sodium Chloride 1,000 ml @ 100 mls/hr Q10H IV 03/18/24 11:30 03/19/24 12:04 100 MLS/HR Acetaminophen/ Hydrocodone Bitart 1 tab Q4HP PRN PO 03/18/24 11:30 03/19/24 12:01 1 TAB Ondansetron HCl 4 mg Q4HP PRN IV 03/18/24 11:30 03/18/24 21:12 4 MG Acetaminophen 650 mg Q6HP PRN PO 03/18/24 11:30 03/19/24 08:32 650 MG Piperacillin Sod/ Tazobactam Sod 100 ml @ 25 mls/hr Q6HR IV 03/18/24 12:00 03/19/24 12:01 25 MLS/HR Hydromorphone HCl 0.5 mg QIDPRN PRN IV 03/18/24 14:30 03/18/24 21:12 0.5 MG laboratory and microbiology Laboratory Tests 03/19/24 06:10 Test 03/19/24 06:10 Range/Units Serum Glucose 101 74-106 mg/dL Problem List/Assessment/Plan Problem List/Assessment/Plan afebrile vss abd soft NON TENDER REPEAT CT SCAN NEG FOR AC APPENDICITIS ADVANCE DIET DORON CLEARED FOR DISCHARGE Plan discussed with: Patient My Orders My Orders Orders - WILBERT JOLLEY MD Procedure Category Date Status Time Ct Ab Pel With Oral CT 03/19/24 Resulted Con Only 08:37 Clear Liq Diet DIET 03/19/24 Transmitted Lunch WILBERT JOLLEY MD Mar 19, 2024 16:39
[2024-03-19] MEDS ORDERED: IBUP1TAB5 PO (16:52)
[2024-03-19] MEDS ORDERED: PANT40TA2 PO (16:52)
[2024-03-19] MEDS ORDERED: CYCL-839 PO (16:52)
[2024-03-19 16:54] VITALS: BP 133/77; PULSE 55; RESP 18; TEMP 98.3; O2SAT 99
--- NOTE | 2024-03-19 16:58 | DVHDS2 ---
Discharge Summary Date of Admission Mar 18, 2024 at 11:19 Date of Discharge: Mar 19, 2024 Labs/Diagnostic Data: Laboratory Results Test 03/19/24 06:10 03/18/24 07:45 03/18/24 07:40 White Blood Count 4.6 10^3/uL (4.4-10.8) Red Blood Count 4.70 10^6/uL (4.5-5.90) Hemoglobin 15.1 g/dL (13.5-17.5) Hematocrit 43.5 % (41.0-53.0) Mean Corpuscular Volume 92.7 fL (80.0-100.0) Mean Corpuscular Hemoglobin 32.2 pg (28.0-32.0) Mean Corpuscular Hemoglobin Concent 34.8 g/dL (32.0-36.0) Red Cell Distribution Width 12.4 % (11.8-14.3) Platelet Count 223 10^3/uL (140-450) Mean Platelet Volume 8.1 fL (6.9-10.8) Neutrophils (%) (Auto) 52.8 % (37.0-80.0) Lymphocytes (%) (Auto) 35.5 % (10.0-50.0) Monocytes (%) (Auto) 5.2 % (0.0-12.0) Eosinophils (%) (Auto) 5.6 % (0.0-7.0) Basophils (%) (Auto) 0.9 % (0.0-2.0) Neutrophils # (Auto) 2.4 10 ^3/uL (1.6-8.6) Lymphocytes # (Auto) 1.6 10 ^3/uL (0.4-5.4) Monocytes # (Auto) 0.2 10 ^3/uL (0-1.3) Eosinophils # (Auto) 0.3 10 ^3/uL (0-0.8) Basophils # (Auto) 0 10 ^3/uL (0-0.2) Nucleated Red Blood Cells 0.2 % Sodium Level 141 mmol/L (136-145) Potassium Level 3.9 mmol/L (3.5-5.1) Chloride Level 105 mmol/L (98-107) Carbon Dioxide Level 29 mmol/L (20-31) Anion Gap 7 (5-15) Blood Urea Nitrogen 10 mg/dL (9-23) Creatinine 1.01 mg/dL (0.700-1.30) Glomerular Filtration Rate Calc 103 mL/min (>90) BUN/Creatinine Ratio 9.9 (10.0-20.0) Serum Glucose 101 mg/dL (74-106) Calcium Level 9.8 mg/dL (8.7-10.4) Total Bilirubin 1.8 mg/dL (0.2-1.0) Aspartate Amino Transferase (AST) 12 U/L (13-40) Alanine Aminotransferase (ALT) 10 U/L (7-40) Alkaline Phosphatase 48 U/L (46-116) Total Protein 6.2 g/dL (5.7-8.2) Albumin 4.0 g/dL (3.2-4.8) Urine Color Light-yellow (Yellow) Urine Clarity Clear (Clear) Urine pH 8.0 (5.0-9.0) Urine Specific [place] 1.015 (1.001-1.035) Urine Protein Negative (Negative) Urine Ketones Negative (Negative) Urine Blood Negative /uL (Negative) Urine Nitrite Negative (Negative) Urine Bilirubin Negative (Negative) Urine Urobilinogen Normal mg/dL (Negative) Urine Leukocyte Esterase Negative /uL (Negative) Urine RBC 1 /hpf (0 - 3) Urine WBC <1 /hpf (0 - 3) Urine Squamous Epithelial Cells None seen /hpf (<5) Urine Bacteria None seen /hpf (None Seen) Urine Glucose Normal mg/dL (Normal) C-Reactive Protein High Sensitivity 0.18 mg/dL (<1.0) Other Laboratory Tests 03/19/24 06:10 Brief Hx & Hospital Course: 28Y M with no past medical history who reports to the ED today for nausea, vomiting, diarrhea, dysuria, and abdominal pain x3 days. Patient reports that it started during the new year's and he has been vomiting clear and food contents. On admit patient has acute right lower quadrant pain that is tender to palpation. CT abdomen pelvis initially not conclusive but on repeat is negative for acute appendicitis. Patient is given pain control p.r.n., antiemetics and IV antibiotics. Surgery also reviewed the case and is able to agree with ruled out of acute appendicitis. Patient's starts to tolerate p.o., pain is tolerable with p.r.n. oral medications, bowel movements soft and loose. Plan made for patient to continue pain management outpatient. And follow up with PCP as per plan below. Diagnosis: intractable abdominal pain due to gastroenteritis infection, likely viral, resolving; musculoskeletal pain possible; acute abdomen ruled out; Discharge plan: - full liquid diet, yougurt/pro-biotic daily x 2 week (OTC) - trial msk relaxant x1week (flexiril nightly), and nsaid (ibuprofen) daily x1 week (can also used as needed). - protonix 40mg daily for x1 weeks. - setup with PCP. follow-up with PCP to review discharge and setup regular healthcare management. - continue other home medications. return to ED if pain returns/worsening and/or if oral intolerance develops due to nausea/vomiting. Visitation and planning required 35 minutes Condition at Discharge: Fair Final Diagnosis/Problems List intractable abdominal pain due to gastroenteritis infection, likely viral, resolving; musculoskeletal pain possible; acute abdomen ruled out; Discharge Disposition: Home Discharge Instruct/Medications Diet: See Comment Diet comment: full liquid diet x 1 week Activity: No Restrictions, As Tolerated Follow Up/Referral: PCP Medications: as below Discharge Statement: "Patient was advised to return to the ER or call 911 if any headaches, dizziness, shortness of breath, chest pain, abdominal pain, bleeding, fevers, or worsening of medical condition. Patient was counseled about treatment plan, medications, possible side effects, patientverbalized understanding. All questions were answered to the best of my ability. This discharge took greater then 30 minutes in planning, reviewing documentation, counseling the patient, and discussing with other team members." ASSESSMENT ASSESSMENT Assessment intractable abdominal pain due to gastroenteritis infection, likely viral, resolving; musculoskeletal pain possible; acute abdomen ruled out; Date of Service: Mar 19, 2024 Billing Provider: RONAK GAONA MD Common Visit Codes: 19770-SMJ/OBS DISCH DAY >30min RONAK GAONA MD Mar 19, 2024 16:58
== END 2024-03-19 18:33 | disposition home or self-care (01) | DRG 392 ==
LOC: ER 06:44 → OVERFLOW 11:19 → EAST 18:50
DX: A08.4 Viral intestinal infection, unspecified (principal); M79.18 Myalgia, other site; Z79.899 Other long term (current) drug therapy
CPT/HCPCS: 36415; 74176; 76705; 80048; 80053; 81001; 85025; 86141; G0378; J1885; J2405; J2543